=== PATIENT | female | born 1980 ===

== ENCOUNTER 2023-10-31 20:16 | Emergency (ER) | payer BC, SELFPAY ==
[2023-10-31 20:22] VITALS: BP 159/88; PULSE 95; RESP 20; TEMP 36.7; O2SAT 99; BMI 33.6
--- NOTE | 2023-10-31 20:58 | ED_ITS ---
HPI - Back Pain/Injury General Date Seen: 10/31/23 Chief Complaint: Back Injury/Pain Stated Complaint: back pain, trouble breathing Time Seen by Provider: 10/31/23 20:26 Source: patient Mode of arrival: ambulatory Limitations: no limitations History of Present Illness HPI Narrative: Patient is a 43-year-old female presenting to the emergency department for low back pain. Pain is about at all 1 region and radiates to the right side of her back. Be most of the pain though is midline. States she has had this pain for several years and will have occasional flare ups every few months. She states usually physical therapy helps with her flare ups. She went to urgent care yesterday and had a normal urinalysis and was started on Toradol and methocarbamol. She states this has helped some but she still having intense flare ups that prevents her from moving it makes her feel short of breath. She states she feels like a flare-up say getting worse over the past few years. Has not seen a spine surgeon and has not had an MRI done. Pain does not radiate down the leg. Denies saddle anesthesia, loss of bowel or bladder control, urinary retention, fevers, history of IV drug use. No other concerns noted at this time. Related Data Previous Rx's ?Medication ?Instructions ?Recorded famotidine 20 mg tablet 20 mg PO BID 5 days #10 tabs 10/30/23 ketorolac 10 mg tablet 10 mg PO Q6H PRN pain 5 days #20 10/30/23 tabs methocarbamol 750 mg tablet 750 mg PO QHS #7 tabs 10/30/23 oxycodone 5 mg tablet 5 mg PO Q6H PRN pain #6 tabs 10/31/23 prednisone 20 mg tablet 40 mg (2 x 20 mg) PO DAILY #8 tabs 10/31/23 Allergies Allergy/AdvReac Type Severity Reaction Status Date / Time No Known Drug Allergies Allergy Verified 10/31/23 20:24 Review of Systems Narrative: Pertinent systems reviewed are negative unless stated in HPI PFSH PFSH Medical History (Updated 10/31/23 @ 21:03 by Gutierrez Ansari DO) Chronic back pain ?M54.9 - Dorsalgia, unspecified (ICD-10) ?G89.29 - Other chronic pain (ICD-10) Social History Smoking Status: Never smoker Second hand tobacco smoke exposure: No How often do you have a drink containing alcohol: never AUDIT-C Alcohol total score: 0 Non-prescribed substance use: denies use Exam Narrative: Exam Narrative: Const: Well-nourished, Well-developed, in moderate distress Eyes: PERRL, no conjunctival injection, and symmetrical lids HENT: Atraumatic external nose and ears. Moist mucous membranes. Neck: Symmetric, trachea midline, No thyromegaly. CVS: RRR, No murmurs or gallops. Peripheral pulses 2+ and equal in all extremities RESP: Unlabored respiratory effort. Clear to auscultation bilaterally. GI: Nontender/Nondistended, No rebound or guarding. MSK:Extremities w/o deformity, decreased range of motion of the lumbar spine secondary to pain Skin: Warm, Dry. No rashes or lesions. Neuro: Normal Muscle tone, No focal neurological deficits. Psych: Awake, Alert, & Oriented x3. Appropriate mood and affect. Const: Vital Signs, click to edit/add: Vital Signs - 24 hr 10/31/23 20:22 10/31/23 21:12 10/31/23 21:12 Temperature 98.0 F 98.0 F 98.0 F Pulse Rate [Right Pulse Oximeter] 95 89 89 Respiratory Rate 20 20 20 Blood Pressure [Ri ght Upper Arm] 159/88 H 145/74 H 145/74 H Pulse Oximetry 99 99 Oxygen Delivery Me thod Room Air Room Air Course Vital Signs Vital signs: Initial Vital Signs Temperature 98.0 F 10/31/23 20:22 Temperature Source Temporal Artery Scan 10/31/23 20:22 Pulse Rate 95 10/31/23 20:22 Respiratory Rate 20 10/31/23 20:22 Blood Pressure 159/88 H 10/31/23 20:22 Blood Pressure Mean 111 H 10/31/23 20:22 Blood Pressure Position Sitting 10/31/23 20:22 Pulse Oximetry 99 10/31/23 20:22 Oxygen Delivery Method Room Air 10/31/23 20:22 Vital Signs Temperature 98.0 F 10/31/23 20:22 Pulse Rate 95 10/31/23 20:22 Respiratory Rate 20 10/31/23 20:22 Blood Pressure 159/88 H 10/31/23 20:22 Pulse Oximetry 99 10/31/23 20:22 Oxygen Delivery Method Room Air 10/31/23 20:22 Temperature 98.0 F 10/31/23 21:12 Pulse Rate 89 10/31/23 21:12 Respiratory Rate 20 10/31/23 21:12 Blood Pressure 145/74 H 10/31/23 21:12 Pulse Oximetry 99 10/31/23 21:12 Oxygen Delivery Method Room Air 10/31/23 21:12 Medications Administered Medications: Discontinued Medications Generic Name Dose Route Start Last Admin Trade Name Kale PRN Reason Stop Dose Admin Oxycodone HCl 5 mg 10/31/23 20:57 10/31/23 20:59 Oxycodone 5 Mg Tablet PO 10/31/23 20:58 5 mg ONCE ONE Administration Prednisone 50 mg 10/31/23 20:57 10/31/23 20:59 Prednisone 10 Mg Tablet PO 10/31/23 20:58 50 mg ONCE ONE Administration MDM - Back Pain/Injury MDM Narrative Medical decision making narrative: Patient is a 43-year-old female presenting to the emergency department for back pain. Pain is consistent with her previous pain issues describes as a spasm sensation. No history of kidney stones but this seems unlikely to be kidney stone especially concerning there is no blood seen in her urinalysis yesterday. Most likely this is her previous back pain spasm in again. I do not believe imaging will be helpful as she has not had any recent back injuries. As speaking to her ibuprofen helps the best and she has noticed some mild improvement with the Toradol but she says it wears off after 3 hours. Considering and NSAIDs do seem to help I will try some steroids to see of this will help with any inflammation. She states acetaminophen does not help. Has not been on any narcotics for in the past. Wall I am hesitant to prescribe narcotics for back pain she does seem like a good historian and does not appear to be showing any seeking behavior so at this time I am comfortable give her a few pills of oxycodone by informed her she would not be able to get any further narcotics from our emergency department for this back pain. She states she understands. Will be discharged home. First dose of prednisone and oxycodone given in the ED. Discharge Plan Discharge Clinical Impression: Lumbar radiculopathy Patient Disposition: Home, Self-Care Condition: Stable Instructions: Acute Low Back Pain (ED) Additional Instructions: When you lay on your back tried put pillows underneath the legs to raise your legs up. When lying on her side have a pillow between her legs to try and straighten out the spine. Follow-up with the primary care provider about the pain. At this time I do recommend only take the oxycodone when you feel like he needed but to start taking the Toradol every 6 hours instead of only when you are feeling the pain come on Prescriptions: New oxycodone 5 mg tablet 5 mg PO Q6H PRN (Reason: pain) Qty: 6 0RF prednisone 20 mg tablet 40 mg PO DAILY Qty: 8 0RF No Action methocarbamol 750 mg tablet 750 mg PO QHS Qty: 7 0RF ketorolac 10 mg tablet 10 mg PO Q6H PRN (Reason: pain) 5 Days Qty: 20 0RF Rx Instructions: maximum total duration of 5 days from all oral, intranasal, or parenteral formulations famotidine 20 mg tablet 20 mg PO BID 5 Days Qty: 10 0RF Follow Up/Referrals: Provider,Not a Local [Staff Physician] - Stand Alone Forms: [employer] Info Instructions
[2023-10-31] MEDS: predniSONE 10 MG TABLET 50 MG PO (20:59)
[2023-10-31] MEDS: OXYCODONE 5 MG TABLET PO (20:59)
[2023-10-31 21:12] VITALS: BP 145/74; PULSE 89; RESP 20; TEMP 36.7; O2SAT 99
== END 2023-10-31 21:13 | disposition home or self-care (01) ==
PROVIDERS: Emergency Provider Student in an Organized Health Care Education/Training Program; PCP Family Medicine
DX: M54.16 Radiculopathy, lumbar region (principal)
CPT/HCPCS: 99282; 99283; A9270; J7512